=== PATIENT | male | born 1940 | race Caucasian/White ===

== ENCOUNTER 2020-11-27 11:28 | Outpatient (CLI) | payer MEDICARE, OTHER ==
[~2020-11-27 11:28] MED LIST: CHLO25TA PO; LOSA50TA14 PO; REGADENOSON 0.4 MG/5 ML SYRINGE ONE; SIMV20TA19 PO
== END 2020-11-27 23:59 | disposition home or self-care (01) ==
LOC: CFH 11:28
PROVIDERS: ATTEND Internal Medicine Cardiovascular Disease
DX: Z01.810 Encounter for preprocedural cardiovascular examination (principal); R91.1 Solitary pulmonary nodule; I51.7 Cardiomegaly; Z72.0 Tobacco use
CPT/HCPCS: 78452; 93017; 93306; 93356; A9502; J2785